=== PATIENT | male | born 1945 | race Caucasian/White ===

== ENCOUNTER 2018-03-15 10:15 | Emergency (ER) | payer OTHER ==
[~2018-03-15] VITALS: Ht 182.9 cm; Wt 113.4 kg
[2018-03-15 10:35] VITALS: BP 0/0
== END 2018-03-15 16:01 ==
LOC: ER 10:15
DX: I16.9 Hypertensive crisis, unspecified (principal); K92.2 Gastrointestinal hemorrhage, unspecified